=== PATIENT | female | born 1995 | race African-American/Black ===

== ENCOUNTER 2016-07-21 13:38 | Emergency (ER) | payer SELFPAY ==
--- NOTE | 2016-07-21 14:47 | ER Document Report ---
ED Medical Screen (RME) - General Chief Complaint: Bloody Stools Stated Complaint: STOOL PROBLEM Time Seen by Provider: 07/21/16 14:45 Notes: The patient is a 20-year-old female, past medical history prior hemorrhoids, presents with 10 months of intermittent bloody stools. She had 2 large bowel movements yesterday and today that were bright red blood and filled the toilet. No lightheadedness, dizziness or rectal pain. PE: NAD. Soft, non-tender abdomen. I have greeted and performed a rapid initial assessment of this patient. A comprehensive ED assessment and evaluation of the patient, analysis of test results and completion of the medical decision making process will be conducted by additional ED providers. TRAVEL OUTSIDE OF THE [place] IN LAST 30 DAYS: No - Related Data Allergies/Adverse Reactions: No Known Allergies Allergy (Verified 07/21/16 13:52) Past Medical History - Social History Chew tobacco use (# tins/day): No Frequency of alcohol use: None Drug Abuse: None Renal/ Medical History: Denies: Hx Peritoneal Dialysis Surgical Hx: Negative Past Surgical History: Reports: Hx Tonsillectomy - Immunizations Immunizations up to date: Yes Physical Exam - Vital signs Vitals: Temp Pulse Resp BP Pulse Ox 98.1 F 80 16 121/62 99 07/21/16 13:52 07/21/16 13:52 07/21/16 13:52 07/21/16 13:52 07/21/16 13:52 Course - Vital Signs Vital signs: Temp Pulse Resp BP Pulse Ox 98.1 F 80 16 121/62 99 07/21/16 13:52 07/21/16 13:52 07/21/16 13:52 07/21/16 13:52 07/21/16 13:52
--- NOTE | 2016-07-21 16:05 | ER Document Report ---
ED GI Bleed / Rectal Pain - General Mode of Arrival: Ambulatory Information source: Patient TRAVEL OUTSIDE OF THE [place] IN LAST 30 DAYS: No - HPI Patient complains to provider of: Hemorrhoids Associated symptoms: Other - See above <RANJIT GOULD - Last Filed: 07/21/16 16:38> <EDEN HAHN - Last Filed: 07/21/16 22:01> - General Chief Complaint: Bloody Stools Stated Complaint: POSSIBLE BLOOD IN STOOL Time Seen by Provider: 07/21/16 14:45 Notes: The patient is a 20-year-old female, with a past medical history including hemorrhoids, who presents to the emergency department complaining of bloody stools for the past 10 months. Patient states that today there are more clots than usual when she used the restroom. Patient states that her stools have been very hard and she has pain with bowel movements, patient also reports having black stools and mucous. Patient denies blood per rectum without bowel movements. Patient does not have a PCP. (RANJIT GOULD) - Related Data Allergies/Adverse Reactions: No Known Allergies Allergy (Verified 07/21/16 13:52) Past Medical History - General Information source: Patient - Social History Smoking Status: Never Smoker Chew tobacco use (# tins/day): No Frequency of alcohol use: None Drug Abuse: None Family History: None, Reviewed & Not Pertinent Patient has suicidal ideation: No Patient has homicidal ideation: No Surgical Hx: Negative Past Surgical History: Reports: Hx Tonsillectomy - Immunizations Immunizations up to date: Yes <RANJIT GOULD - Last Filed: 07/21/16 16:38> Review of Systems - Review of Systems Constitutional: No symptoms reported EENT: No symptoms reported Cardiovascular: No symptoms reported Respiratory: No symptoms reported Gastrointestinal: See HPI, Blood streaked bowels, Black stools. denies: Rectal bleeding Genitourinary: No symptoms reported Female Genitourinary: No symptoms reported Musculoskeletal: No symptoms reported Skin: No symptoms reported Hematologic/Lymphatic: No symptoms reported Neurological/Psychological: No symptoms reported -: Yes All other systems reviewed and negative <RANJIT GOULD - Last Filed: 07/21/16 16:38> Physical Exam - Vital signs Interpretation: Normal - General General appearance: Appears well, Alert - HEENT Head: Normocephalic, Atraumatic - Respiratory Respiratory status: No respiratory distress Chest status: Nontender Breath sounds: Normal Chest palpation: Normal - Cardiovascular Rhythm: Regular Heart sounds: Normal auscultation Murmur: No - Abdominal Inspection: Normal Distension: No distension Bowel sounds: Normal Tenderness: Nontender Organomegaly: No organomegaly - Rectal Hemorrhoids: Internal, External - Extremities General upper extremity: Normal inspection General lower extremity: Normal inspection - Neurological Neuro grossly intact: Yes Cognition: Normal Orientation: AAOx4 [place] Coma Scale Eye Opening: Spontaneous [place] Coma Scale Verbal: Oriented [place] Coma Scale Motor: Obeys Commands [place]meet Coma Scale Total: 15 Speech: Normal - Psychological Associated symptoms: Normal affect, Normal mood - Skin Skin Temperature: Warm Skin Moisture: Dry Skin Color: Normal <RANJIT GOULD - Last Filed: 07/21/16 16:38> Course - Laboratory Result Diagrams: 07/21/16 15:05 <RANJIT GOULD - Last Filed: 07/21/16 16:38> - Laboratory Result Diagrams: 07/21/16 15:05 <EDEN HAHN - Last Filed: 07/21/16 22:01> - Re-evaluation Re-evalutation: 07/21/16 Patient with hemorrhoids on exam. Stable vitals and hemoglobin. Patient appears well. She is to take stool softeners and follow-up with her doctor or gastroenterology if she has any further or worsening symptoms. Stable for discharge. Return if further concerns. Understands and agrees with plan. (EDEN HAHN) - Vital Signs Vital signs: Temp Pulse Resp BP Pulse Ox 98.2 F 72 20 106/54 L 99 07/21/16 17:51 07/21/16 17:51 07/21/16 17:51 07/21/16 17:51 07/21/16 17:51 Discharge <RANJIT GOULD - Last Filed: 07/21/16 16:38> <EDEN HAHN - Last Filed: 07/21/16 22:01> - Discharge Clinical Impression: Blood in stool Hemorrhoid Qualifiers: Hemorrhoid type: unspecified Qualified Code(s): K64.9 - Unspecified hemorrhoids Condition: Stable Disposition: HOME, SELF-CARE Instructions: Hemorrhoids ([facility]), Gastroenterology, Stool Softener ([facility]) Prescriptions: Docusate Sodium [Colace 100 mg Capsule] 100 mg PO BID #60 capsule Forms: Return to Work Scribe Attestation: 07/21/16 22:01 I personally performed the services described in the documentation, reviewed and edited the documentation which was dictated to the scribe in my presence, and it accurately records my words and actions. (EDEN HAHN) Scribe Documentation - Scribe Written by Aly:: aly Rivera, 07/21/16, [id number] acting as scribe for :: Leonid <RANJIT GOULD - Last Filed: 07/21/16 16:38>
[2016-07-21 16:26] LABS: ABSOLUTE EOSINOPHILS # (AUTO) 0.2 10^3/uL (0.0-0.6); ABSOLUTE LYMPHOCYTES (AUTO) 2.5 10^3/uL (0.5-4.7); ABSOLUTE MONOCYTES (AUTO) 0.6 10^3/uL (0.1-1.4); BASOPHILS % (AUTO) 0.3 % (0-2); HEMATOCRIT 39.1 % (36.0-47.0); HGB HCT DIFFERENCE -0.1; LYMPHOCYTES % (AUTO) 26.8 % (13-45); MEAN CORPUSCULAR HEMOGLOBIN 28.8 pg (27.0-33.4); MEAN CORPUSCULAR HGB CONC 33.3 g/dL (32.0-36.0); MEAN CORPUSCULAR VOLUME 87 fl (80-97); MONOCYTES % (AUTO) 6.4 % (3-13); RED BLOOD COUNT 4.51 10^6/uL (3.72-5.28); SEGMENTED NEUTROPHILS % (AUTO) 64.5 % (42-78); WHITE BLOOD COUNT 9.4 10^3/uL (4.0-10.5)
[2016-07-21 17:54] VITALS: BP 106/54
== END 2016-07-21 17:54 | disposition home or self-care (01) ==
LOC: ER 13:38
DX: R19.5 Other fecal abnormalities (principal); K64.9 Unspecified hemorrhoids
CPT/HCPCS: 36415; 84703; 85025; 99283

== ENCOUNTER 2017-02-04 08:29 | Emergency (ER) | payer OTHER ==
[2017-02-04 08:37] VITALS: BP 116/57
[2017-02-04] MEDS ORDERED: IBUPROFEN 400 MG TABLET PO ONE (08:57)
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
== END 2017-02-04 10:04 | disposition home or self-care (01) ==
LOC: ER 08:29
DX: S29.012A Strain of muscle and tendon of back wall of thorax, initial encounter (principal); S00.83XA Contusion of other part of head, initial encounter; V49.40XA Driver injured in collision with unspecified motor vehicles in traffic accident, initial encounter
CPT/HCPCS: 99283; J3490

== ENCOUNTER 2017-08-28 09:04 | Emergency (ER) | payer MEDICAID, OTHER ==
[2017-08-28 09:23] VITALS: BP 122/75
[2017-08-28] MEDS ORDERED: HYDROXYZINE PAMOATE 50 MG CAPSULE PO ONE (09:46)
--- NOTE | 2017-08-28 10:40 | ER Document Report ---
ED General - General Chief Complaint: Anxiety Stated Complaint: CHEST PAIN Time Seen by Provider: 08/28/17 09:39 Notes: 21-year-old female here with complaints of midsternal chest pain shortness of breath palpitations rapid breathing feeling very anxious that started earlier this morning. The symptoms started when she began to feel "very stressed out". They were worse with feeling stressed and when she was able to calm down and feel less stressed. The symptoms are not worse with exertion or breathing. Her symptoms improved and largely resolved. She endorsed to the nurse that she had some suicidal ideations however does not report them to me. Denies any prior history of anxiety. TRAVEL OUTSIDE OF THE [place] IN LAST 30 DAYS: No - Related Data Allergies/Adverse Reactions: No Known Allergies Allergy (Verified 08/28/17 09:15) Past Medical History - Social History Smoking Status: Never Smoker Chew tobacco use (# tins/day): No Frequency of alcohol use: None Drug Abuse: None Family History: None, Reviewed & Not Pertinent Patient has suicidal ideation: Yes Patient has homicidal ideation: No Renal/ Medical History: Denies: Hx Peritoneal Dialysis Past Surgical History: Reports: Hx Tonsillectomy - Immunizations Immunizations up to date: Yes Review of Systems - Review of Systems Notes: See history of present illness for pertinent positive review of systems; otherwise all review of systems have been reviewed and are negative Physical Exam - Vital signs Vitals: Temp Pulse Resp BP Pulse Ox 98.6 F 80 20 122/75 97 08/28/17 09:21 08/28/17 09:21 08/28/17 09:21 08/28/17 09:21 08/28/17 09:21 - Notes Notes: PHYSICAL EXAMINATION: GENERAL: Well-appearing and in no acute distress. HEAD: Atraumatic, normocephalic. EYES: Pupils equal round and reactive to light, extraocular movements intact, sclera anicteric, conjunctiva are normal. ENT: nares patent, oropharynx clear without exudates. Moist mucous membranes. NECK: Normal range of motion, supple without lymphadenopathy LUNGS: CTAB and equal. No wheezes rales or rhonchi. HEART: Regular rate and rhythm without murmurs ABDOMEN: Soft, no tenderness. No facial grimacing/wincing upon palpation. No guarding, no rebound. EXTREMITIES: Normal range of motion, no pitting edema. No cyanosis. NEUROLOGICAL: Cranial nerves grossly intact. Normal sensory/motor exams. PSYCH: Appears slightly anxious, reports SI to nurse, but not me SKIN: Warm, Dry, normal turgor, no rashes or lesions noted Course - Re-evaluation Re-evalutation: 08/28/17 10:40 MEDICAL DECISION MAKING: Concern for anxiety related symptoms, unremarkable EKG Given possible SI, Dr. Wolfe has come and spoken with the patient and cleared her for discharge She recommends patient follow-up with [facility] outpatient and prescription BuSpar 5 mg twice daily Instructed patient follow-up [facility] outpatient and start prescription Patient understands and agrees to the plan of care - Vital Signs Vital signs: Temp Pulse Resp BP Pulse Ox 98.6 F 80 20 122/75 97 08/28/17 09:21 08/28/17 09:21 08/28/17 09:21 08/28/17 09:21 08/28/17 09:21 - EKG Interpretation by Me EKG shows normal: Sinus rhythm Rate: Normal Heart block present: No: 1st Degree, Mobitz 1, Mobitz 2, CHB (3rd degree block) When compared to previous EKG there are: Previous EKG unavailable Additional EKG results interpreted by me: 08/28/17 10:[address] elevation depressions Discharge - Discharge Clinical Impression: Anxiety Condition: Good Disposition: HOME, SELF-CARE Instructions: Anxiety ([facility]) Additional Instructions: Please follow up outpatient with the [facility] information given to you by Dr. Wolfe. Prescriptions: Buspirone HCl [Buspar 5 mg Tablet] 1 tab PO BID #14 tab
--- NOTE | 2017-08-29 00:18 | EKG REPORT ---
SEVERITY:- NORMAL ECG - SINUS RHYTHM : Confirmed by: Shalonda Alonso MD 29-Aug-2017 00:18:10
== END 2017-08-28 10:30 | disposition home or self-care (01) ==
LOC: ER 09:04
DX: F41.9 Anxiety disorder, unspecified (principal); I44.2 Atrioventricular block, complete; R07.9 Chest pain, unspecified; R06.02 Shortness of breath; R00.2 Palpitations
CPT/HCPCS: 93005; 99284; 93010; J3490

== ENCOUNTER 2019-08-25 07:39 | Emergency (ER) | payer BC, MEDICAID ==
[2019-08-25] MEDS ORDERED: SULFAMETHOXAZOLE/TRIMETHOPRIM 800-160 MG TABLET PO ONE (09:19)
[2019-08-25] MEDS ORDERED: LIDOCAINE 4% CREAM 5 GM TUBE TP ONE (09:19)
[2019-08-25] MEDS ORDERED: HYDROCODONE/ACETAMINOPHEN 5-325 MG TABLET PO ONE (09:19)
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
[2019-08-25 10:37] VITALS: BP 108/73
== END 2019-08-25 10:37 | disposition home or self-care (01) ==
LOC: ER 07:39
DX: M79.5 Residual foreign body in soft tissue (principal)
CPT/HCPCS: 99283; J3490